=== PATIENT | female | born 1995 | race Two or more races ===

== ENCOUNTER 2019-08-19 18:49 | Emergency (ER) | payer OTHER ==
[~2019-08-19] VITALS: Ht 160 cm; Wt 65.8 kg
[2019-08-19] MEDS ORDERED: IBUPROFEN 600 MG TAB PO ONE ×3 (19:37→19:45)
[2019-08-19 20:33] VITALS: BP 138/81
== END 2019-08-19 20:45 | disposition home or self-care (01) ==
LOC: ER 18:57
DX: S00.83XA Contusion of other part of head, initial encounter (principal); Z90.89 Acquired absence of other organs; W22.8XXA Striking against or struck by other objects, initial encounter; Y93.89 Activity, other specified; Y99.8 Other external cause status; Y92.89 Other specified places as the place of occurrence of the external cause
CPT/HCPCS: 70450; 72125